=== PATIENT | female | born 1940 | race Hispanic/Latino ===

== ENCOUNTER 2024-04-18 12:27 | Inpatient (IN) | payer MEDICARE ==
[~2024-04-18] VITALS: Ht 144.8 cm; Wt 47.6 kg
[2024-04-18 13:23] LABS: BASOPHILS % 0.3 % (0.0-1.0); HEMATOCRIT 37.4 % (34.2-44.1); HEMOGLOBIN 12.7 g/dL (12.0-16.0); LYMPHOCYTES # (AUTO) 0.8 (1.0-3.2); LYMPHOCYTES % 6.4 % (18.0-39.1); MEAN CORPUSCULAR HEMOGLOBIN 32.4 pg (28-32); MEAN CORPUSCULAR VOLUME 95.4 fL (81-99); MONOCYTES # (AUTO) 0.3 (0.2-0.8); MONOCYTES % 2.5 % (4.4-11.3); NEUTROPHILS # (AUTO) 11.9 (2.1-6.9); NEUTROPHILS % 90.6 % (38.7-80.0); PLATELET COUNT 419 x10e3/uL (140-360); RED BLOOD COUNT 3.92 x10e6/uL (3.6-5.1); RED CELL DISTRIBUTION WIDTH 11.6 % (11.7-14.4); WHITE BLOOD COUNT 13.07 x10e3/uL (4.8-10.8)
[2024-04-18 13:24] LABS: INR 0.94
[2024-04-18 13:25] LABS: PARTIAL THROMBOPLASTIN TIME 35.4 seconds (23.8-35.5)
[2024-04-18 13:31] LABS: COVID 19 ANTIGEN NOT DETECTED (NEGATIVE)
[2024-04-18 13:32] LABS: CLARITY,URINE SL CLOUDY (CLEAR); COLOR,URINE YELLOW (YELLOW); GLUCOSE, URINE NEGATIVE (NEGATIVE); KETONES,URINE NEGATIVE (NEGATIVE); LEUKOCYTE ESTERASE ,URINE NEGATIVE (NEGATIVE); NITRITE,URINE NEGATIVE (NEGATIVE); PH,URINE 5.5 (5 - 7); PROTEIN,URINE DIPSTICK NEGATIVE (NEGATIVE); URINE UROBILINOGEN 0.2 mg/dL (0.2 - 1)
[2024-04-18 13:33] LABS: BACTERIA,URINE FEW /HPF; BILIRUBIN,URINE NEGATIVE (NEGATIVE); EPITHELIAL CELLS,URINE FEW /LPF; RBC,URINE 21-50 /HPF (0-5); WBC,URINE (MAN) 0-5 /HPF (0-5)
[2024-04-18 13:34] LABS: ALANINE AMINOTRANSFERASE 10 IU/L (0-55); ALBUMIN 4.7 g/dL (3.5-5.0); ALBUMIN/GLOBULIN RATIO 1.2 (0.8-2.0); ALKALINE PHOSPHATASE 82 IU/L (40-150); ANION GAP 18.7 mmol/L (8-16); BILIRUBIN,TOTAL 0.5 mg/dL (0.2-1.2); BLOOD UREA NITROGEN 14 mg/dL (7-26); BUN/CREATININE RATIO 13 (6-25); CALCIUM 11.5 mg/dL (8.4-10.2); CARBON DIOXIDE 21 mmol/L (22-29); CHLORIDE 95 mmol/L (98-107); CREATINE KINASE 58 IU/L (29-168); CREATININE, SERUM 1.07 mg/dL (0.57-1.11); EST GLOMERULAR FILTRATION RATE 52 ML/MIN (>=60); GLUCOSE 143 mg/dL (74-118); POTASSIUM 3.7 mmol/L (3.5-5.1); SODIUM 131 mmol/L (136-145); TOTAL PROTEIN 8.5 g/dL (6.5-8.1)
[2024-04-18] MEDS: SODIUM CHLORIDE 0.9% 1000ML 1,000 ML IV SCH ×2 (13:36→21:46)
[2024-04-18] MEDS: ONDANSETRON HCL INJ 2MG/ML 2ML 2 MG/ML VIAL IV STA (13:37)
[2024-04-18 13:41] LABS: INFLUENZAE A&B ANTIGEN (RAPID) NEGATIVE (NEGATIVE); RESPIRATORY SYNC. VIRUS NEGATIVE (NEGATIVE); TROPONIN I 0.006 ng/mL (0-0.300)
[2024-04-18] MEDS ORDERED: IOPAMIDOL 370 MG/ML 100 ML INFUS..BTL INJ ONE (13:45)
[2024-04-18] MEDS: SODIUM CHLORIDE 0.9% 1000ML 1,000 ML IV STA (14:25)
[2024-04-18] MEDS ORDERED: ONDANSETRON HCL INJ 2MG/ML 2ML 2 MG/ML VIAL IV PRN (15:30)
[2024-04-18] MEDS: METOPROLOL TARTRATE 25 MG TAB PO ONE (15:35)
[2024-04-18 16:09] VITALS: PULSE 116; RESP 18; TEMP 98.9
[2024-04-18 18:30] VITALS: BP 137/61; PULSE 98; RESP 18; TEMP 96.2; O2SAT 98
[2024-04-18 19:00] VITALS: BP 113/44; PULSE 90; RESP 18; TEMP 98.3; O2SAT 95
[2024-04-18 20:47] VITALS: BP 111/60; PULSE 92; RESP 18; TEMP 97.6; O2SAT 99
[2024-04-18 21:00] VITALS: BP 111/60; PULSE 92; RESP 18; TEMP 97.6; O2SAT 99
[2024-04-18 23:44] VITALS: BP 113/44; PULSE 90; RESP 18; TEMP 98.3; O2SAT 95
[2024-04-19] MEDS ORDERED: LISINOPRIL-HCT1 EACH PO (00:26)
[2024-04-19] MEDS ORDERED: ALENDRONATE SOD70 MG PO (00:26)
[2024-04-19 00:59] LABS: BASOPHILS % 0.2 % (0.0-1.0); EOSINOPHILS % 0.1 % (0.0-6.0); HEMATOCRIT 31.2 % (34.2-44.1); HEMOGLOBIN 10.3 g/dL (12.0-16.0); LYMPHOCYTES # (AUTO) 2.8 (1.0-3.2); LYMPHOCYTES % 31.3 % (18.0-39.1); MEAN CORPUSCULAR HEMOGLOBIN 31.7 pg (28-32); MONOCYTES # (AUTO) 0.7 (0.2-0.8); MONOCYTES % 7.7 % (4.4-11.3); NEUTROPHILS # (AUTO) 5.5 (2.1-6.9); NEUTROPHILS % 60.6 % (38.7-80.0); PLATELET COUNT 342 x10e3/uL (140-360); RED BLOOD COUNT 3.25 x10e6/uL (3.6-5.1); RED CELL DISTRIBUTION WIDTH 11.8 % (11.7-14.4); WHITE BLOOD COUNT 8.99 x10e3/uL (4.8-10.8)
[2024-04-19 01:28] LABS: TROPONIN I 0.044 ng/mL (0-0.300)
[2024-04-19 04:00] VITALS: BP 118/55; PULSE 84; RESP 18; TEMP 98; O2SAT 100
[2024-04-19 05:24] LABS: BASOPHILS % 0.3 % (0.0-1.0); EOSINOPHILS % 0.3 % (0.0-6.0); HEMATOCRIT 32.5 % (34.2-44.1); HEMOGLOBIN 10.8 g/dL (12.0-16.0); LYMPHOCYTES # (AUTO) 2.2 (1.0-3.2); LYMPHOCYTES % 29.6 % (18.0-39.1); MEAN CORPUSCULAR HEMOGLOBIN 32.2 pg (28-32); MEAN CORPUSCULAR HGB CONC 33.2 g/dL (31-35); MONOCYTES # (AUTO) 0.6 (0.2-0.8); MONOCYTES % 8.1 % (4.4-11.3); NEUTROPHILS # (AUTO) 4.7 (2.1-6.9); NEUTROPHILS % 61.4 % (38.7-80.0); PLATELET COUNT 335 x10e3/uL (140-360); RED BLOOD COUNT 3.35 x10e6/uL (3.6-5.1); RED CELL DISTRIBUTION WIDTH 11.6 % (11.7-14.4); WHITE BLOOD COUNT 7.56 x10e3/uL (4.8-10.8)
[2024-04-19 05:49] LABS: ALBUMIN 3.5 g/dL (3.5-5.0); ALBUMIN/GLOBULIN RATIO 1.4 (0.8-2.0); ANION GAP 13.4 mmol/L (8-16); CALCIUM 9.8 mg/dL (8.4-10.2); CREATININE, SERUM 0.78 mg/dL (0.57-1.11)
[2024-04-19 05:55] LABS: TROPONIN I 0.024 ng/mL (0-0.300)
[2024-04-19 06:03] LABS: POTASSIUM 3.4 mmol/L (3.5-5.1)
[2024-04-19 08:00] VITALS: BP 122/54; PULSE 101; RESP 18; TEMP 98; O2SAT 100
[2024-04-19 08:51] VITALS: BP 122/54; PULSE 101; RESP 18; TEMP 97.9; O2SAT 99
[2024-04-19] MEDS ORDERED: ACETAMINOPHEN 325 MG TAB PO PRN (11:00)
[2024-04-19 11:27] VITALS: BP 139/59; PULSE 110; RESP 18; TEMP 98.2; O2SAT 100
[2024-04-19] MEDS ORDERED: PROTONIX20 MG PO (11:40)
[2024-04-19] MEDS: POTASSIUM BICARBONATE/CIT AC 20 MEQ TABLET.EFF PO ONE (13:00)
[2024-04-19] MEDS: HYDROCHLOROTHIAZIDE 25 MG TAB PO SCH (13:01)
[2024-04-19] MEDS: LISINOPRIL 20 MG TAB PO SCH (13:01)
[2024-04-19 15:25] VITALS: BP 106/56; PULSE 94; RESP 18; TEMP 97.9; O2SAT 98
[2024-04-21] MEDS ORDERED: CIPRO500 MG PO (12:32)
== END 2024-04-19 16:17 | disposition home or self-care (01) | DRG 641 ==
LOC: ER 12:33 → ERHOLD 15:35 → MED/SURG2 18:09
PROVIDERS: ADMIT Internal Medicine; ATTEND Internal Medicine
DX: E86.0 Dehydration (principal); K92.0 Hematemesis; N39.0 Urinary tract infection, site not specified; B96.5 Pseudomonas (aeruginosa) (mallei) (pseudomallei) as the cause of diseases classified elsewhere; E11.9 Type 2 diabetes mellitus without complications; I10 Essential (primary) hypertension; R00.0 Tachycardia, unspecified; K44.9 Diaphragmatic hernia without obstruction or gangrene; F41.9 Anxiety disorder, unspecified; R53.81 Other malaise; K76.0 Fatty (change of) liver, not elsewhere classified; Z11.52 Encounter for screening for COVID-19; Z88.0 Allergy status to penicillin
CPT/HCPCS: 0223U; 36415; 71045; 74177; 80053; 80061; 81001; 82550; 82948; 83605; 83735; 84443; 84484; 85025; 85610; 85730; 87040; 87086; 87186; 87400; 87420; 93005; 94760; 99284; J0692; J2405; J2470; J7030; Q9967